=== PATIENT | female | born 1990 | race American Indian/Alaskan Native ===

== ENCOUNTER 2019-02-06 05:20 | Emergency (ER) | payer SELFPAY ==
[2019-02-06 05:41] VITALS: BP 141/98
[2019-02-06 06:00] LABS: Bilirubin,Urine NEG (Negative); Blood,Urine NEG (Negative); Color,Urine Yellow (Yellow); Mucus,Urine 1+ /HPF; Protein,Urine <15 mg/dL mg/dL (Negative); Urobilinogen,Urine < 2.0 mg/dL (<2.0)
[2019-02-06 06:01] LABS: HCG Qualitative,Urine Negative (Negative)
--- NOTE | 2019-02-06 07:37 | Emergency Department Report ---
ED Female HPI - General Chief complaint: Urogenital-Female Stated complaint: UTI SYMPTOMS COLD SX Source: patient Mode of arrival: Ambulatory Limitations: No Limitations - History of Present Illness Initial comments: This is a 28-year-old Stateless female who presents with UTI symptoms in upper respiratory symptoms. Patient admits to urinary frequency, dysuria, and abdominal cramping for one week. Reports last menstrual period 02/02/2019, 0. Patient also concerned of possible STD. She also complains of a cough for several months. She reports a history of bronchitis. Patient tried his symptoms usually last for about 3 months with change of seasons. She is currently using an inhaler with minimal improvement of symptoms. She denies fever, chest pain, shortness of breath, wheeze, or vaginal bleeding. MD Complaint: vaginal discharge Onset/Timin -: week(s) Location: suprapubic Radiation: non-radiating Severity: mild Severity scale (0 -10): 3 Quality: cramping Consistency: intermittent Improves with: none Worsens with: urination Are you Now?: No Last Menstrual Period: 02/02/19 EDC: 11/09/19 Associated Symptoms: vaginal discharge, abdominal pain, dysuria. denies: vaginal bleeding, nausea/vomiting, fever/chills, headaches, loss of appetite, hematuria, rash, seizure, shortness of breath, syncope, weakness - Related Data Sexually active: Yes : 0 Para: 0 A: 0 Previous Rx's Medication Instructions Recorded Last Taken Type ALBUTEROL Inhaler(NF) [VENTOLIN 1 puff IH Q4-6H PRN #1 inha 08/31/18 Unknown Rx Inhaler(NF)] Benzonatate [Tessalon Perle] 100 mg PO TID PRN #20 capsule 08/31/18 Unknown Rx metroNIDAZOLE [Metronidazole] 500 mg PO BID #14 tablet 08/31/18 Unknown Rx Fluticasone [Flonase] 1 spray NS QDAY #1 bottle 02/06/19 Unknown Rx Montelukast [Singulair] 10 mg PO QPM #30 tablet 02/06/19 Unknown Rx metroNIDAZOLE [Metronidazole] 500 mg PO BID #14 tablet 02/06/19 Unknown Rx Allergies Allergy/AdvReac Type Severity Reaction Status Date / Time No Known Allergies Allergy Unverified 08/31/18 12:30 ED Review of Systems ROS: Stated complaint: UTI SYMPTOMS COLD SX Other details as noted in HPI Constitutional: denies: chills, fever Respiratory: denies: cough, shortness of breath, wheezing Cardiovascular: denies: chest pain, palpitations Gastrointestinal: abdominal pain. denies: nausea, diarrhea Genitourinary: dysuria, frequency. denies: urgency, discharge Musculoskeletal: denies: back pain, joint swelling, arthralgia Neurological: denies: headache, weakness, paresthesias Psychiatric: denies: anxiety, depression ED Past Medical Hx - Past Medical History Previous Medical History?: Yes Hx Asthma: (bronchitis) - Surgical History Past Surgical History?: No Additional Surgical History: hysterscopy - Social History Smoking Status: Light Tobacco Smoker Substance Use Type: Alcohol - Medications Home Medications: Home Medications Medication Instructions Recorded Confirmed Last Taken Type ALBUTEROL Inhaler(NF) [VENTOLIN 1 puff IH Q4-6H PRN #1 inha 08/31/18 Unknown Rx Inhaler(NF)] Benzonatate [Tessalon Perle] 100 mg PO TID PRN #20 capsule 08/31/18 Unknown Rx metroNIDAZOLE [Metronidazole] 500 mg PO BID #14 tablet 08/31/18 Unknown Rx Fluticasone [Flonase] 1 spray NS QDAY #1 bottle 02/06/19 Unknown Rx Montelukast [Singulair] 10 mg PO QPM #30 tablet 02/06/19 Unknown Rx metroNIDAZOLE [Metronidazole] 500 mg PO BID #14 tablet 02/06/19 Unknown Rx ED Physical Exam - General Limitations: No Limitations General appearance: alert, in no apparent distress, obese - ENT ENT exam: Present: normal orophraynx, mucous membranes moist, TM's normal bilaterally, normal external ear exam, other (turbinates mildly congested with clear discharge) - Respiratory Respiratory exam: Present: normal lung sounds bilaterally. Absent: respiratory distress, wheezes, rales, rhonchi, stridor, prolonged expiratory - Cardiovascular Cardiovascular Exam: Present: regular rate, normal rhythm. Absent: systolic murmur, diastolic murmur, rubs, gallop - GI/Abdominal GI/Abdominal exam: Present: soft, normal bowel sounds. Absent: distended, tenderness, guarding, rebound, rigid, organomegaly, mass, bruit, pulsatile mass - External exam: Present: normal external exam Speculum exam: Present: normal speculum exam Bi-manual exam: Present: normal bi-manual exam - Back Exam Back exam: Absent: CVA tenderness (R), CVA tenderness (L) - Neurological Exam Neurological exam: Present: alert, oriented X3 - Psychiatric Psychiatric exam: Present: normal affect, normal mood - Skin Skin exam: Present: warm, dry, intact, normal color. Absent: rash ED Course Vital Signs 02/06/19 05:37 Temperature 97.8 F Pulse Rate 83 Respiratory 18 Rate Blood Pressure 141/98 O2 Sat by Pulse 98 Oximetry ED Medical Decision Making - Lab Data Lab Results 02/06/19 Range/Units 05:49 Urine Color Yellow (Yellow) Urine Turbidity Clear (Clear) Urine pH 5.0 (5.0-7.0) Ur Specific [place] 1.028 (1.003-1.030) Urine Protein <15 mg/dl (Negative) mg/dL Urine Glucose (UA) Neg (Negative) mg/dL Urine Ketones Neg (Negative) mg/dL Urine Blood Neg (Negative) Urine Nitrite Neg (Negative) Urine Bilirubin Neg (Negative) Urine Urobilinogen < 2.0 (<2.0) mg/dL Ur Leukocyte Esterase Neg (Negative) Urine WBC (Auto) 2.0 (0.0-6.0) /HPF Urine RBC (Auto) 2.0 (0.0-6.0) /HPF U Epithel Cells (Auto) 2.0 (0-13.0) /HPF Urine Mucus 1+ /HPF Urine HCG, Qual Negative (Negative) - Medical Decision Making This patient was examined by this provider. Vitals are stable and in no acute distress. I obtained a urinalysis, urine hCG, wet prep, gonorrhea and chlamydia via pelvic exam. Gonorrhea and chlamydia pending. All of the labs are unremarkable. Empirically treated with Rocephin 250 mg IM and azithromycin 1 g by mouth for STD exposure. Patient will be treated for allergic rhinitis. Start Flonase and Singulair. Acute vaginitis, start metronidazole 500 mg by mouth twice a day 7 days. Patient instructed to continue used an inhaler is short of breath. Instructed to follow up in 3-5 days for pending lab results. Discharged home in stable condition. Discussed prevention options. F/U with PCP or Health Department. Critical care attestation.: If time is entered above; I have spent that time in minutes in the direct care of this critically ill patient, excluding procedure time. ED Disposition Clinical Impression: Vaginal discharge, Abdominal cramping, STD exposure, Nasal congestion with rhinorrhea, Acute vaginitis Allergic rhinitis Qualifiers: Allergic rhinitis trigger: pollen Allergic rhinitis seasonality: seasonal Qualified Code(s): J30.1 - Allergic rhinitis due to pollen Disposition: TO HOME OR SELFCARE Is pt being admited?: No Does the pt Need Aspirin: No Condition: Stable Instructions: Allergic Rhinitis (ED), Safe Sex (ED), Sexually Transmitted Diseases (ED) Additional Instructions: Use warm moist compresses over sinuses. Use ibuprofen or Tylenol for pain. Use nasal saline spray. Follow-up in 3-5 days for lab results. Follow up with Primary Care Provider if fever, short of breath, chest pain, or symptoms do not improve as discussed. Prescriptions: Fluticasone [Flonase] 1 spray NS QDAY #1 bottle metroNIDAZOLE [Metronidazole] 500 mg PO BID #14 tablet Montelukast [Singulair] 10 mg PO QPM #30 tablet Referrals: CARLYN OLIVEIRA MD [Primary Care Provider] - 3-5 Days [facility] [Outside] - 3-5 Days [facility] [Outside] - 3-5 Days Time of Disposition: 08:46
[2019-02-06] MEDS ORDERED: ROCEPHIN IM ONE (08:48)
[2019-02-06] MEDS ORDERED: XYLOCAINE 1% MPF 5 mL INFILTRATI ONE (08:48)
[2019-02-06] MEDS ORDERED: ZITHROMAX PO ONE (08:48)
== END 2019-02-06 09:36 | disposition home or self-care (01) ==
LOC: ED 05:20
DX: N76.0 Acute vaginitis (principal); B96.89 Other specified bacterial agents as the cause of diseases classified elsewhere; J30.9 Allergic rhinitis, unspecified; F17.200 Nicotine dependence, unspecified, uncomplicated; Z90.710 Acquired absence of both cervix and uterus
CPT/HCPCS: 81001; 81025; 87210; 87591; 96372; 99284; J0696

== ENCOUNTER 2019-05-26 03:57 | Emergency (ER) | payer SELFPAY ==
[2019-05-26 04:35] LABS: Bilirubin,Urine NEG (Negative); Blood,Urine LG (Negative); Color,Urine Red (Yellow); Mucus,Urine 3+ /HPF; RBC,Urine > 182.0 /HPF (0.0-6.0); Urobilinogen,Urine < 2.0 mg/dL (<2.0)
[2019-05-26 05:35] LABS: Basophils % (Auto) 0.5 % (0.0-1.8); Eosinophils % (Auto) 0.5 % (0.0-4.3); Hematocrit 38.2 % (30.3-42.9); Lymphocytes # (Auto) 3.4 K/mm3 (1.2-5.4); Lymphocytes % (Auto) 37.2 % (13.4-35.0); Mean Corpuscular HGB Conc 32 % (30-34); Mean Corpuscular Volume 79 fl (79-97); Monocytes # (Auto) 0.8 K/mm3 (0.0-0.8); Monocytes % (Auto) 8.3 % (0.0-7.3); Platelet Count 303 K/mm3 (140-440); Red Blood Count 4.87 M/mm3 (3.65-5.03); Red Cell Distribution Width 18.5 % (13.2-15.2)
[2019-05-26] MEDS ORDERED: ROCEPHIN IM ONE (06:14)
[2019-05-26] MEDS ORDERED: XYLOCAINE 1% MPF 5 mL INFILTRATI ONE (06:14)
[2019-05-26] MEDS ORDERED: ZITHROMAX PO ONE (06:14)
[2019-05-26 06:15] VITALS: BP 156/119
--- NOTE | 2019-05-26 06:52 | Emergency Department Report ---
ED Female HPI - General Chief complaint: Vaginal Bleeding Stated complaint: IRREGULAR CYCLE Time Seen by Provider: 05/26/19 06:31 Source: patient Mode of arrival: Ambulatory Limitations: No Limitations - History of Present Illness Initial comments: Patient presents for vaginal spotting status post sexual contact 3 days ago states she removed a retained condom and started spotting afterwards requesting prophylactic treatment for STD exposure patient has history of abnormal cycles There is no fever no chills no nausea no vomiting and dysuria or frequency or urgency no hematuria MD Complaint: vaginal bleeding, vaginal discharge, possible STD Onset/Timin -: days(s) Location: suprapubic Radiation: suprapubic Severity: moderate Severity scale (0 -10): 3 Quality: cramping Consistency: constant Improves with: none Worsens with: urination Are you Now?: No Last Menstrual Period: 05/12/19 EDC: 02/16/20 Associated Symptoms: vaginal discharge, vaginal bleeding - Related Data Sexually active: Yes Previous Rx's Medication Instructions Recorded Last Taken Type ALBUTEROL Inhaler(NF) [VENTOLIN 1 puff IH Q4-6H PRN #1 inha 08/31/18 Unknown Rx Inhaler(NF)] Benzonatate [Tessalon Perle] 100 mg PO TID PRN #20 capsule 08/31/18 Unknown Rx metroNIDAZOLE [Metronidazole] 500 mg PO BID #14 tablet 08/31/18 Unknown Rx Fluticasone [Flonase] 1 spray NS QDAY #1 bottle 02/06/19 Unknown Rx Montelukast [Singulair] 10 mg PO QPM #30 tablet 02/06/19 Unknown Rx metroNIDAZOLE [Metronidazole] 500 mg PO BID #14 tablet 02/06/19 Unknown Rx metroNIDAZOLE [Flagyl] 500 mg PO BID 10 Days #20 tab 05/26/19 Unknown Rx Allergies Allergy/AdvReac Type Severity Reaction Status Date / Time acetaminophen [From [facility]] Allergy Swelling Verified 05/26/19 04:01 hydrocodone [From [facility]] Allergy Swelling Verified 05/26/19 04:01 ED Review of Systems ROS: Stated complaint: IRREGULAR CYCLE Other details as noted in HPI Constitutional: denies: chills, fever Eyes: denies: eye pain, eye discharge, vision change ENT: denies: ear pain, throat pain Respiratory: denies: cough, shortness of breath, wheezing Cardiovascular: denies: chest pain, palpitations Endocrine: no symptoms reported Gastrointestinal: denies: abdominal pain, nausea, vomiting, diarrhea, constipation Genitourinary: discharge, dyspareunia. denies: urgency, dysuria, frequency, hematuria Musculoskeletal: denies: back pain, joint swelling, arthralgia Skin: denies: rash, lesions Neurological: denies: headache, weakness, paresthesias Psychiatric: denies: anxiety, depression Hematological/Lymphatic: denies: easy bleeding, easy bruising ED Past Medical Hx - Past Medical History Previous Medical History?: Yes Hx Asthma: (bronchitis) - Surgical History Past Surgical History?: Yes Additional Surgical History: hysterscopy - Social History Smoking Status: Never Smoker Substance Use Type: Alcohol - Medications Home Medications: Home Medications Medication Instructions Recorded Confirmed Last Taken Type ALBUTEROL Inhaler(NF) [VENTOLIN 1 puff IH Q4-6H PRN #1 inha 08/31/18 Unknown Rx Inhaler(NF)] Benzonatate [Tessalon Perle] 100 mg PO TID PRN #20 capsule 08/31/18 Unknown Rx metroNIDAZOLE [Metronidazole] 500 mg PO BID #14 tablet 08/31/18 Unknown Rx Fluticasone [Flonase] 1 spray NS QDAY #1 bottle 02/06/19 Unknown Rx Montelukast [Singulair] 10 mg PO QPM #30 tablet 02/06/19 Unknown Rx metroNIDAZOLE [Metronidazole] 500 mg PO BID #14 tablet 02/06/19 Unknown Rx metroNIDAZOLE [Flagyl] 500 mg PO BID 10 Days #20 tab 05/26/19 Unknown Rx ED Physical Exam - General Limitations: No Limitations General appearance: alert, in no apparent distress - Head Head exam: Present: atraumatic, normocephalic - Eye Eye exam: Present: normal appearance, PERRL, EOMI Pupils: Present: normal accommodation - ENT ENT exam: Present: normal orophraynx, mucous membranes moist, TM's normal bilaterally, normal external ear exam - Neck Neck exam: Present: normal inspection, full ROM, lymphadenopathy, thyromegaly. Absent: tenderness, meningismus - Respiratory Respiratory exam: Absent: respiratory distress, wheezes, stridor, chest wall tenderness - Cardiovascular Cardiovascular Exam: Present: regular rate, normal rhythm, normal heart sounds. Absent: systolic murmur, diastolic murmur, rubs, gallop - GI/Abdominal GI/Abdominal exam: Present: soft, normal bowel sounds. Absent: distended, tenderness, guarding, rebound, rigid, bruit, hernia - Rectal Rectal exam: Present: deferred - External exam: Present: normal external exam, erythema, swelling, lesions, lacerations, ecchymosis, bleeding - Extremities Exam Extremities exam: Present: normal inspection - Back Exam Back exam: Present: normal inspection, full ROM. Absent: tenderness, CVA tenderness (R), CVA tenderness (L), muscle spasm, paraspinal tenderness, vertebral tenderness, rash noted - Neurological Exam Neurological exam: Present: alert, oriented X3, CN II-XII intact, normal gait, motor sensory deficit, reflexes normal - Psychiatric Psychiatric exam: Present: normal affect, normal mood, anxious. Absent: depressed, agitated - Skin Skin exam: Present: warm, dry, intact, normal color. 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 Critical care attestation.: If time is entered above; I have spent that time in minutes in the direct care of this critically ill patient, excluding procedure time. ED Disposition Clinical Impression: STD exposure, Abnormal uterine bleeding (AUB) Disposition: - TO HOME OR SELFCARE Is pt being admited?: No Does the pt Need Aspirin: No Condition: Stable Instructions: Sexually Transmitted Diseases (ED), Menorrhagia (ED) Prescriptions: metroNIDAZOLE [Flagyl] 500 mg PO BID 10 Days #20 tab Referrals: CARLYN OLIVEIRA MD [Primary Care Provider] - 3-5 Days Forms: Work/School Release Form(ED) Time of Disposition: 07:03
== END 2019-05-26 07:23 | disposition home or self-care (01) ==
LOC: ED 03:57
DX: N93.8 Other specified abnormal uterine and vaginal bleeding (principal); J45.909 Unspecified asthma, uncomplicated; Z90.710 Acquired absence of both cervix and uterus; Z79.899 Other long term (current) drug therapy; Z88.6 Allergy status to analgesic agent; Z20.2 Contact with and (suspected) exposure to infections with a predominantly sexual mode of transmission
CPT/HCPCS: 36415; 81001; 84703; 85025; 96372; 99283; J0696

== ENCOUNTER 2020-12-08 10:21 | Emergency (ER) | payer MEDICAID ==
[2020-12-08 10:27] VITALS: BP 130/90
--- NOTE | 2020-12-08 10:32 | Emergency Department Report ---
ED Female HPI - General Chief complaint: Urogenital-Female Stated complaint: PAINFUL URINATION Time Seen by Provider: 12/08/20 10:29 Source: patient Mode of arrival: Ambulatory Limitations: No Limitations - History of Present Illness Initial comments: 30-year-old female presents to the ER today complaint of dysuria. Onset 4 days ago. She reports associated vaginal itching and slight lower abdominal cramping. She denies any apparent vaginal discharge or any vaginal rash or any hematuria. She states her last menstrual cycle was about a week ago. She denies any abnormal vaginal bleeding. She states that she does have a relatively new sexual partner and about 2 weeks ago she had a ruptured condom. She reports no other symptoms at this time. MD Complaint: dysuria -: Gradual (4 days ago ) - Related Data Previous Rx's Medication Instructions Recorded Last Taken Type ALBUTEROL Inhaler(NF) [VENTOLIN 1 puff IH Q4-6H PRN #1 inha 08/31/18 Unknown Rx Inhaler(NF)] Fluticasone [Flonase] 1 spray NS QDAY #1 bottle 02/06/19 Unknown Rx Montelukast [Singulair] 10 mg PO QPM #30 tablet 02/06/19 Unknown Rx Doxycycline Hyclate [Doxycycline 100 mg PO Q12HR #14 tab 12/08/20 Unknown Rx Hyclate TAB] Fluconazole (Nf) [Diflucan TAB] 150 mg PO ONCE #1 tablet 12/08/20 Unknown Rx metroNIDAZOLE [metroNIDAZOLE 70 gm VG QHS #5 gel.w.appl 12/08/20 Unknown Rx VAGINAL 0.75% gel] Allergies Allergy/AdvReac Type Severity Reaction Status Date / Time acetaminophen [From [place]] Allergy Swelling Verified 12/08/20 10:22 hydrocodone [From [place]] Allergy Swelling Verified 12/08/20 10:22 ED Review of Systems ROS: Stated complaint: PAINFUL URINATION Other details as noted in HPI Comment: All other systems reviewed and negative Gastrointestinal: abdominal pain. denies: nausea, vomiting Genitourinary: dysuria, discharge ED Past Medical Hx - Past Medical History Previous Medical History?: No Hx Asthma: (bronchitis) - Surgical History Past Surgical History?: Yes Additional Surgical History: hysterscopy - Social History Smoking Status: Never Smoker Substance Use Type: Alcohol - Medications Home Medications: Home Medications Medication Instructions Recorded Confirmed Last Taken Type ALBUTEROL Inhaler(NF) [VENTOLIN 1 puff IH Q4-6H PRN #1 inha 08/31/18 Unknown Rx Inhaler(NF)] Fluticasone [Flonase] 1 spray NS QDAY #1 bottle 02/06/19 Unknown Rx Montelukast [Singulair] 10 mg PO QPM #30 tablet 02/06/19 Unknown Rx Doxycycline Hyclate [Doxycycline 100 mg PO Q12HR #14 tab 12/08/20 Unknown Rx Hyclate TAB] Fluconazole (Nf) [Diflucan TAB] 150 mg PO ONCE #1 tablet 12/08/20 Unknown Rx metroNIDAZOLE [metroNIDAZOLE 70 gm VG QHS #5 gel.w.appl 12/08/20 Unknown Rx VAGINAL 0.75% gel] ED Physical Exam - General Limitations: No Limitations General appearance: alert, in no apparent distress - Head Head exam: Present: atraumatic, normocephalic, normal inspection - Eye Eye exam: Present: normal appearance, PERRL, EOMI Pupils: Present: normal accommodation - ENT ENT exam: Present: normal exam, mucous membranes moist - Neck Neck exam: Present: normal inspection - Respiratory Respiratory exam: Present: normal lung sounds bilaterally. Absent: respiratory distress - Cardiovascular Cardiovascular Exam: Present: regular rate, normal rhythm, normal heart sounds - GI/Abdominal GI/Abdominal exam: Present: soft. Absent: distended, tenderness - External exam: Present: normal external exam Speculum exam: Present: vaginal discharge. Absent: erythema, vaginal bleeding, foreign body Bi-manual exam: Present: normal bi-manual exam - Neurological Exam Neurological exam: Present: alert, oriented X3, CN II-XII intact, normal gait - Psychiatric Psychiatric exam: Present: normal affect, normal mood - Skin Skin exam: Present: intact ED Course Vital Signs 12/08/20 10:26 Temperature 97.9 F Pulse Rate 88 Respiratory 16 Rate Blood Pressure 130/90 O2 Sat by Pulse 99 Oximetry Critical care attestation.: If time is entered above; I have spent that time in minutes in the direct care of this critically ill patient, excluding procedure time. ED Disposition Clinical Impression: Bacterial vaginosis, Yeast vaginitis, Concern about STD in female without diagnosis Disposition: DC-01 TO HOME OR SELFCARE Is pt being admited?: No Does the pt Need Aspirin: No Condition: Stable Instructions: Vaginal Yeast Infection, Adult, Bacterial Vaginosis, [id number], Bacterial Vaginosis (ED) Additional Instructions: The doxycycline, Diflucan and use the Flagyl suppositories as instructed. Recommend no sexual activity for at least 7 days. Your partner will likely need to be treated if your other test is positive. Follow-up closely with your primary care doctor. Return to the ER if your symptoms changes or worsens in any way. Prescriptions: metroNIDAZOLE [metroNIDAZOLE VAGINAL 0.75% gel] 70 gm VG QHS #5 gel.w.appl Fluconazole (Nf) [Diflucan TAB] 150 mg PO ONCE #1 tablet Doxycycline Hyclate [Doxycycline Hyclate TAB] 100 mg PO Q12HR #14 tab Referrals: PRIMARY CARE, [Primary Care Provider] - 3-5 Days Forms: STI Treatment and Prevention Time of Disposition: 11:52
[2020-12-08 10:51] LABS: Bilirubin,Urine NEG (Negative); Blood,Urine NEG (Negative); Color,Urine Straw (Yellow); HCG Qualitative,Urine Negative (Negative); Protein,Urine <15 mg/dL mg/dL (Negative); RBC,Urine < 1.0 /HPF (0.0-6.0); Urobilinogen,Urine < 2.0 mg/dL (<2.0)
[2020-12-08 10:55] LABS: WBC,Urine < 1.0 /HPF (0.0-6.0)
[2020-12-08] MEDS ORDERED: LIDOCAINE-MPF (1%) 10 MG/1 ML VIAL 5 ML INFILTRATI ONE (11:02)
== END 2020-12-08 12:20 | disposition home or self-care (01) ==
LOC: ED 10:21
DX: N76.0 Acute vaginitis (principal); B96.89 Other specified bacterial agents as the cause of diseases classified elsewhere; B37.9 Candidiasis, unspecified; Z20.2 Contact with and (suspected) exposure to infections with a predominantly sexual mode of transmission; J45.909 Unspecified asthma, uncomplicated; Z98.890 Other specified postprocedural states; Z79.899 Other long term (current) drug therapy; Z88.8 Allergy status to other drugs, medicaments and biological substances
CPT/HCPCS: 81001; 81025; 87210; 87591; 96372; 99283; J0696

== ENCOUNTER 2021-05-19 02:45 | Emergency (ER) | payer MEDICAID ==
[2021-05-19 03:05] VITALS: BP 135/91
[2021-05-19 03:25] LABS: Bacteria,Urine 1+ /HPF (Negative); Bilirubin,Urine NEG (Negative); Blood,Urine NEG (Negative); Color,Urine Straw (Yellow); Protein,Urine <15 mg/dL mg/dL (Negative); Urobilinogen,Urine < 2.0 mg/dL (<2.0)
--- NOTE | 2021-05-19 05:01 | Emergency Department Report ---
ED Female HPI - General Chief complaint: Urogenital-Female Stated complaint: ABD PAIN/PAINFUL/FREQUENT URINATION Time Seen by Provider: 05/19/21 04:47 Source: patient Mode of arrival: Ambulatory Limitations: No Limitations - History of Present Illness Initial comments: 31-year-old -Citizen Of [place] female with multiple visits for female issues presents reporting she is having burning and itching to her vaginal area for 2 days. Patient states that her last menstrual period was 05/09/2021. Patient denies any pelvic pain no fever no chills no nausea no vomiting. Patient reports that she did use MetroGel. Patient denies any history of diabetes or hypertension. Patient denies any vaginal discharge. MD Complaint: dysuria Onset/Timin -: days(s) Severity scale (0 -10): 1 Quality: other (Itchy) Consistency: intermittent Improves with: none Worsens with: none Are you Now?: No Last Menstrual Period: 05/09/21 EDC: 02/13/22 Associated Symptoms: denies: vaginal discharge, vaginal bleeding, abdominal pain, nausea/vomiting, fever/chills, loss of appetite, dysuria, hematuria - Related Data Sexually active: Yes : 0 Previous Rx's Medication Instructions Recorded Last Taken Type ALBUTEROL Inhaler(NF) [VENTOLIN 1 puff IH Q4-6H PRN #1 inha 08/31/18 Unknown Rx Inhaler(NF)] Fluticasone [Flonase] 1 spray NS QDAY #1 bottle 02/06/19 Unknown Rx Montelukast [Singulair] 10 mg PO QPM #30 tablet 02/06/19 Unknown Rx Doxycycline Hyclate [Doxycycline 100 mg PO Q12HR #14 tab 12/08/20 Unknown Rx Hyclate TAB] Fluconazole (Nf) [Diflucan TAB] 150 mg PO ONCE #1 tablet 12/08/20 Unknown Rx metroNIDAZOLE [metroNIDAZOLE 70 gm VG QHS #5 gel.w.appl 12/08/20 Unknown Rx VAGINAL 0.75% gel] Allergies Allergy/AdvReac Type Severity Reaction Status Date / Time acetaminophen [From Loda] Allergy Swelling Verified 12/08/20 10:22 hydrocodone [From Loda] Allergy Swelling Verified 12/08/20 10:22 ED Review of Systems ROS: Stated complaint: ABD PAIN/PAINFUL/FREQUENT URINATION Other details as noted in HPI Comment: All other systems reviewed and negative ED Past Medical Hx - Past Medical History Previous Medical History?: Yes Hx Asthma: Yes (bronchitis) - Surgical History Past Surgical History?: Yes Additional Surgical History: hysterscopy - Social History Smoking Status: Never Smoker Substance Use Type: None - Medications Home Medications: Home Medications Medication Instructions Recorded Confirmed Last Taken Type ALBUTEROL Inhaler(NF) [VENTOLIN 1 puff IH Q4-6H PRN #1 inha 08/31/18 Unknown Rx Inhaler(NF)] Fluticasone [Flonase] 1 spray NS QDAY #1 bottle 02/06/19 Unknown Rx Montelukast [Singulair] 10 mg PO QPM #30 tablet 02/06/19 Unknown Rx Doxycycline Hyclate [Doxycycline 100 mg PO Q12HR #14 tab 12/08/20 Unknown Rx Hyclate TAB] Fluconazole (Nf) [Diflucan TAB] 150 mg PO ONCE #1 tablet 12/08/20 Unknown Rx metroNIDAZOLE [metroNIDAZOLE 70 gm VG QHS #5 gel.w.appl 12/08/20 Unknown Rx VAGINAL 0.75% gel] ED Physical Exam - General Limitations: No Limitations General appearance: alert, in no apparent distress - Head Head exam: Present: atraumatic, normocephalic - Eye Eye exam: Present: normal appearance - ENT ENT exam: Absent: normal external ear exam - Neck Neck exam: Present: normal inspection, full ROM - Respiratory Respiratory exam: Absent: accessory muscle use - Cardiovascular Cardiovascular Exam: Present: regular rate - Extremities Exam Extremities exam: Present: normal inspection, full ROM - Back Exam Back exam: Present: normal inspection, full ROM - Neurological Exam Neurological exam: Present: alert, oriented X3, normal gait - Psychiatric Psychiatric exam: Present: normal affect, normal mood - Skin Skin exam: Present: warm, dry, intact, normal color. Absent: rash ED Course Vital Signs 05/19/21 03:03 Temperature 98.5 F Pulse Rate 81 Respiratory 16 Rate Blood Pressure 135/91 O2 Sat by Pulse 100 Oximetry ED Medical Decision Making - Lab Data Laboratory Tests 05/19/21 Unknown Urine Color Straw Urine Turbidity Clear Urine pH 6.0 Ur Specific [place] 1.006 Urine Protein <15 mg/dl Urine Glucose (UA) Neg Urine Ketones Neg Urine Blood Neg Urine Nitrite Neg Urine Bilirubin Neg Urine Urobilinogen < 2.0 Ur Leukocyte Esterase Neg Urine WBC (Auto) 1.0 Urine RBC (Auto) 2.0 U Epithel Cells (Auto) 1.0 Urine Bacteria (Auto) 1+ - Medical Decision Making 31-year-old -Citizen Of [place] female with multiple visits for female issues presents reporting she is having burning and itching to her vaginal area for 2 days. Patient states that her last menstrual period was 05/09/2021. Patient denies any pelvic pain no fever no chills no nausea no vomiting. Patient reports that she did use MetroGel. Patient denies any history of diabetes or hypertension. Patient denies any vaginal discharge. Discussed with patient that her urinalysis is negative for any concerns. Discussed with patient she can follow-up at the health department or [facility] for full STD evaluation. Patient currently has no pelvic pain no active vaginal dis charge or bleeding. Critical care attestation.: If time is entered above; I have spent that time in minutes in the direct care of this critically ill patient, excluding procedure time. ED Disposition Clinical Impression: Vaginal pruritus Disposition: DC- TO HOME OR SELFCARE Is pt being admited?: No Does the pt Need Aspirin: No Condition: Stable Additional Instructions: Urinalysis is negative for any concerns of infection. I recommend following up at the health department or a [facility] for full STD panel. You can try [id number] Monistat. Referrals: [facility] [Outside] - 3-5 Days [facility] [Provider Group] - 3-5 Days [facility] [Provider Group] - 3-5 Days [facility] [Provider Group] - 3-5 Days [facility] [Provider Group] - 3-5 Days Forms: Work/School Release Form(ED)
== END 2021-05-19 05:25 | disposition home or self-care (01) ==
LOC: ED 02:45
DX: L29.2 Pruritus vulvae (principal); J45.909 Unspecified asthma, uncomplicated; Z98.890 Other specified postprocedural states; Z79.899 Other long term (current) drug therapy; Z88.8 Allergy status to other drugs, medicaments and biological substances
CPT/HCPCS: 81001